=== PATIENT | female | born 1940 | race Two or more races ===

== ENCOUNTER 2016-05-24 06:43 | Day surgery (SDC) | payer MEDICARE ==
[~2016-05-24 06:43] MED LIST: FENTANYL 250 MCG/5 ML AMP IV PRN; IV START KIT ONE; LACTATED RINGERS 1,000 ML IV SCH; LIDOCAINE Viscous 2% 15 ML UDCUP PO PRN; MIDAZOLAM HCL 5 MG/5 ML VIAL IV PRN
[2016-05-24] MEDS ORDERED: LACTATED RINGERS 1,000 ML ONE (07:02)
[2016-05-24] MEDS ORDERED: MIDAZOLAM HCL 5 MG/5 ML VIAL ONE (07:49)
[2016-05-24] MEDS ORDERED: FENTANYL 100 MCG/2 ML VIAL ONE (07:49)
[2016-05-24] MEDS ORDERED: LIDOCAINE Viscous 2% 15 ML UDCUP ONE (07:49)
[2016-05-24 13:56] LABS: HELICOBACTER PYLORII DETECTION NEGATIVE (NEGATIVE)
--- NOTE | 2016-05-26 14:53 | SURGPATH ---
[facility] [address] [place] [id number] Patient Name: RICHI LEGGETT MR#: [id number] : 1940 Gender: F Specimen #: [id number] Collected: 05/24/2016 Received: 05/25/2016 Reported: 05/26/2016 Submitting Phys: CHICHO PEREZ Copy To Phys: [facility] GIGENA, LYUBOV Clinical History / Pre-Operative Diagnosis: ABSENCE OF TASTE; RULE OUT GIARDIA, CELIAC SPRUE AND GASTRITIS Specimen Source / Surgical Procedure Performed: #1-DUODENAL BIOPSY; #2-ANTRAL BIOPSY Interpretation: 1. DUODENUM, BIOPSY: - NO PATHOLOGIC DIAGNOSIS 2. GASTRIC ANTRUM, BIOPSY: - CHRONIC GASTRITIS Electronically Signed Out Anthony Garcia M.D. Gross Description: #1 The specimen is received in a formalin filled container labeled with the patient's name and "duodenal biopsy". A single palafox biopsy is 0.5 cm. Totally embedded in cassette #1. #2 The specimen is received in a formalin filled container labeled with the patient's name and "antral biopsy". A single stone-palafox biopsy is 0.5 cm. Totally embedded in cassette #2. James Chu Microscopic Description: 1. Levels reveal small intestinal mucosa with a normal villous architecture. Ulceration, acute inflammation, granulomas, intraepithelial lymphocytosis, Giardia organisms, dysplasia and malignancy are not seen. 2. Levels reveal gastric mucosa with a normal glandular architecture. Increased numbers of chronic inflammatory cells are present throughout the lamina propria. Ulceration, acute inflammation, dysplasia and malignancy are not seen. A Helicobacter immunostain is performed revealing absence of organisms. (Analyte-specific reagents (ASR) are used in many laboratory tests necessary for standard medical care and generally do not require FDA approval. This test was developed and its performance characteristics determined by [facility]. It has not been cleared or approved by the [place]. Food and Drug Administration. [employer] is certified under the Clinical Laboratory Improvement Amendments of 1988 as qualified to perform high complexity clinical laboratory testing. All controls stain as expected.) 1: 82233 2: 83499, 34427 K29.30
== END 2016-05-24 09:10 | disposition home or self-care (01) ==
LOC: SDC 06:43
PROVIDERS: ATTEND Internal Medicine Gastroenterology
PROC: 0DB98ZX Excision of Duodenum, Via Natural or Artificial Opening Endoscopic, Diagnostic (ICD-10-PCS; principal; 2016-05-24)
PROC: 0DB68ZX Excision of Stomach, Via Natural or Artificial Opening Endoscopic, Diagnostic (ICD-10-PCS; 2016-05-24)
DX: R43.8 Other disturbances of smell and taste (principal); K29.50 Unspecified chronic gastritis without bleeding; K29.80 Duodenitis without bleeding; E11.9 Type 2 diabetes mellitus without complications; Z79.84 Long term (current) use of oral hypoglycemic drugs; F32.9 Major depressive disorder, single episode, unspecified; E78.5 Hyperlipidemia, unspecified; I10 Essential (primary) hypertension; M79.1 Myalgia
CPT/HCPCS: 43239; 87081; J3010; J2250; A9270; J7120